=== PATIENT | male | born 1990 | race African-American/Black ===

== ENCOUNTER 2021-05-08 22:52 | Emergency (ER) | payer SELFPAY | END 2021-05-09 01:30 | disposition left against medical advice (07) | LOC: ER 23:10 | DX: R07.0 Pain in throat (principal) ==

== ENCOUNTER 2021-05-09 10:14 | Emergency (ER) | payer SELFPAY ==
[~2021-05-09] VITALS: Ht 175.3 cm; Wt 72.6 kg
== END 2021-05-09 11:10 | disposition home or self-care (01) ==
LOC: ER 10:17
DX: K02.9 Dental caries, unspecified (principal); K04.7 Periapical abscess without sinus
CPT/HCPCS: 99282